=== PATIENT | male | born 1980 | race Caucasian/White ===

== ENCOUNTER 2021-12-04 16:43 | Inpatient (IN) | payer MEDICARE, MEDICAID ==
[~2021-12-04] VITALS: Ht 180.3 cm; Wt 101.2 kg
[~2021-12-04 16:43] MED LIST: LITH300C3 PO; PALI234D IM
[2021-12-04 19:40] LABS: BASOPHILS % (AUTO) 1.2 % (0.0-2.0); EOSINOPHILS % (AUTO) 4.4 % (1.0-6.0); HEMATOCRIT 40.1 % (41-53); HEMOGLOBIN 13.5 g/dL (13.5-17.5); LYMPHOCYTES # (AUTO) 1.7 K/uL (1.0-4.8); LYMPHOCYTES % (AUTO) 31.2 % (22.0-44.0); MEAN CORPUSCULAR HEMOGLOBIN 27.1 pg (26.0-34.0); MEAN CORPUSCULAR HGB CONC 33.6 G/dL (31.0-37.0); MEAN CORPUSCULAR VOLUME 81 fL (80-100); MONOCYTES # (AUTO) 0.5 K/uL (0.1-1.0); MONOCYTES % (AUTO) 9.8 % (2.0-9.0); NEUTROPHILS # (AUTO) 2.9 K/uL (1.8-7.7); NEUTROPHILS % (AUTO) 53.4 % (40.0-70.0); PLATELET COUNT (AUTO) 209 K/uL (150-450); RED BLOOD CELL COUNT(AUTO) 4.97 MIL/uL (4.50-5.90); RED CELL DISTRIBUTION WIDTH 13.4 % (11.5-14.5)
[2021-12-04 19:50] LABS: ANION GAP 7 mmol/L (8-16); CALCIUM, TOTAL 9.5 mg/dL (8.8-10.5); CARBON DIOXIDE 33 mmol/L (22-29); CHLORIDE 102 mmol/L (98-107); CREATININE 1.18 mg/dL (0.60-1.30); GLOMERULAR FILTR. RATE CALC > 60 mL/min (>60); GLUCOSE,RANDOM 93 mg/dL (70-110); POTASSIUM 3.9 mmol/L (3.5-5.1); SODIUM SERUM 142 mmol/L (136-145); UREA NITROGEN, BLOOD 19 mg/dL (7-18)
[2021-12-04 19:56] LABS: ALANINE AMINOTRANSFERASE 19 U/L (12-78); ALBUMIN 3.9 g/dL (3.4-5.0); ALKALINE PHOSPHATASE 77 U/L (46-116); ASPARTATE AMINOTRANSFERASE 17 U/L (15-37); BILIRUBIN,TOTAL 0.9 mg/dL (0.1-1.0); TOTAL PROTEIN, SERUM 7.4 g/dL (6.4-8.2)
[2021-12-04] MEDS ORDERED: ZOLPIDEM TARTRATE 10 MG TABLET PO PRN (23:30)
[2021-12-04] MEDS ORDERED: LORazepam 2 MG TABLET PO PRN (23:30)
[2021-12-04] MEDS ORDERED: HALOPERIDOL 5 MG TABLET PO PRN (23:30)
[2021-12-04 23:54] LABS: COVID AG,FIA SOURCE NASOPHARYNGEAL
[2021-12-05 00:32] LABS: CHOL/HDL RATIO 2.6 (4.2-7.3); CHOLESTEROL 136 mg/dL (131-200); HDL CHOLESTEROL 53 mg/dL (40-60); LDL CHOL (CALC.) 72 mg/dL (0-130); TRIGLYCERIDES 57 mg/dL (15-150)
[2021-12-05] MEDS ORDERED: MAG HYDROX/AL HYDROX/SIMETH ES 30 ML SUSPENSION UDCUP PO PRN (10:00)
[2021-12-05] MEDS ORDERED: ONDANSETRON HCL 4 MG TABLET PO PRN (10:00)
[2021-12-05] MEDS ORDERED: ACETAMINOPHEN 325 MG TABLET PO PRN (10:00)
[2021-12-05] MEDS ORDERED: IBUPROFEN 400 MG TABLET PO PRN (10:00)
[2021-12-05] MEDS ORDERED: ALBUTEROL SULFATE HFA 90 MCG/PUFF 8 GM INHALER IH PRN (10:00)
[2021-12-05] MEDS ORDERED: PETROLATUM,WHITE 28 GM JELLY TP PRN (10:00)
[2021-12-05] MEDS ORDERED: LOPERAMIDE HCL 2 MG CAPSULE PO PRN (10:00)
[2021-12-05] MEDS ORDERED: CloNIDine HCL 0.1 MG TABLET PO PRN (10:00)
[2021-12-05] MEDS ORDERED: DOCUSATE SODIUM 100 MG CAPSULE PO PRN (10:00)
[2021-12-05] MEDS ORDERED: MAGNESIUM HYDROXIDE SUSPENSION 30 ML UDCUP PO PRN (10:00)
[2021-12-05] MEDS ORDERED: GuaiFENesin/D-METHORPHAN [SUGAR-FREE] 200-20MG/10 ML SYRUP UDCUP PO PRN (10:00)
[2021-12-05] MEDS ORDERED: NICOTINE 14 MG/24 HOUR PATCH TD PRN (10:00)
[2021-12-05 10:17] VITALS: BP 123/94
[2021-12-05] MEDS ORDERED: CITA10TA99 PO (12:09)
[2021-12-05] MEDS ORDERED: ARIP5TAB37 PO (12:14)
[2021-12-05] MEDS: CITALOPRAM HYDROBROMIDE 10 MG TABLET PO SCH (12:29)
[2021-12-06] MEDS: CITALOPRAM HYDROBROMIDE 10 MG TABLET PO SCH (08:33)
[2021-12-06 09:00] VITALS: BP 126/84
[2021-12-06] MEDS ORDERED: PALIPERIDONE PALMITATE 234 MG/1.5 ML SYRINGE IM SCH (09:45)
[2021-12-06 17:14] VITALS: BP 125/83
[2021-12-07] MEDS: CITALOPRAM HYDROBROMIDE 10 MG TABLET PO SCH (08:51)
[2021-12-07 09:23] VITALS: BP 130/78
[2021-12-07 16:00] VITALS: BP 124/70
[2021-12-08] MEDS: CITALOPRAM HYDROBROMIDE 10 MG TABLET PO SCH (08:35)
[2021-12-08 09:00] VITALS: BP 129/81
[2021-12-08 18:59] VITALS: BP 144/91
[2021-12-09] MEDS: CITALOPRAM HYDROBROMIDE 10 MG TABLET PO SCH (08:56)
[2021-12-09 11:01] VITALS: BP 140/89
[2021-12-09 16:40] VITALS: BP 141/80
[2021-12-10 08:10] VITALS: BP 121/70
[2021-12-10] MEDS: CITALOPRAM HYDROBROMIDE 10 MG TABLET PO SCH (08:16)
[2021-12-10 16:00] VITALS: BP 146/82
[2021-12-10 19:37] LABS: COVID AG,FIA SOURCE NASAL SWAB
[2021-12-11 08:02] VITALS: BP 113/71
[2021-12-11] MEDS: CITALOPRAM HYDROBROMIDE 10 MG TABLET PO SCH (08:26)
[2021-12-11 16:57] VITALS: BP 140/90
[2021-12-12] MEDS: CITALOPRAM HYDROBROMIDE 10 MG TABLET PO SCH (08:18)
[2021-12-12 09:55] VITALS: BP 154/92
[2021-12-12 17:03] VITALS: BP 120/70
[2021-12-13] MEDS: CITALOPRAM HYDROBROMIDE 10 MG TABLET PO SCH (08:20)
[2021-12-13 09:29] VITALS: BP 134/85
[2021-12-13] MEDS ORDERED: CITA10TA99 PO (10:33)
[2021-12-13] MEDS ORDERED: PALI234D IM (10:33)
== END 2021-12-13 12:45 | disposition home or self-care (01) | DRG 885 ==
LOC: EMS 16:46 → UNDOADMIN 12-05 04:09 → 3EC 12-05 04:09 → 3EX 12-05 04:09
PROVIDERS: ADMIT Psychiatry & Neurology Psychiatry; ATTEND Psychiatry & Neurology Psychiatry
DX: F25.0 Schizoaffective disorder, bipolar type (principal); I10 Essential (primary) hypertension; K59.00 Constipation, unspecified; E66.9 Obesity, unspecified; Z20.822 Contact with and (suspected) exposure to COVID-19; I95.9 Hypotension, unspecified; Z68.31 Body mass index [BMI] 31.0-31.9, adult; Z79.899 Other long term (current) drug therapy; Z87.891 Personal history of nicotine dependence; Z88.8 Allergy status to other drugs, medicaments and biological substances
CPT/HCPCS: 80053; 80061; 85025; 99285; G0378; G0480

== ENCOUNTER 2021-12-17 21:23 | Emergency (ER) | payer MEDICARE, MEDICAID ==
[~2021-12-17] VITALS: Ht 180.3 cm; Wt 100.0 kg
[~2021-12-17 21:23] MED LIST changes: +CITA10TA99 PO; -LITH300C3 PO
[2021-12-17 21:39] VITALS: BP 123/77
[2021-12-17] MEDS ORDERED: OLANZapine 5 MG TABLET PO ONE (23:00)
== END 2021-12-17 23:50 | disposition left against medical advice (07) ==
LOC: EMS 21:25
DX: F41.9 Anxiety disorder, unspecified (principal); F31.9 Bipolar disorder, unspecified; F20.9 Schizophrenia, unspecified; F17.210 Nicotine dependence, cigarettes, uncomplicated; Z88.8 Allergy status to other drugs, medicaments and biological substances; Z79.899 Other long term (current) drug therapy
CPT/HCPCS: 99283